=== PATIENT | male | born 1980 | race Caucasian/White ===

== ENCOUNTER 2016-08-04 10:33 | Emergency (ER) | payer OTHER, MEDICAID ==
[~2016-08-04] VITALS: Ht 162.6 cm; Wt 77.1 kg
[2016-08-04 10:33] VITALS: BP_SYST 123
[~2016-08-04 10:33] MED LIST: AZAT50TA18 PO; OMEP20CA4 PO; PRED-428 PO; SEN30 PO; SULF1TAB47 PO; TACR1CAP PO; VALG450T PO; [UNRECOGNIZED DRUG - CODE] PO
[2016-08-04] MEDS ORDERED: NACL 0.9% 1,000 ML IV ONE (10:54)
[2016-08-04] MEDS ORDERED: ONDANSETRON HCL 4 MG/2 ML VIAL IVP ONE (11:00)
[2016-08-04 11:14] LABS: BASOPHILS % (AUTO) 0.5 % (0.0-2.0); HEMATOCRIT 46.2 % (36-54); HEMOGLOBIN 15.2 g/dL (14.0-18.0); LYMPHOCYTES # (AUTO) 0.3 K/uL (1.0-5.5); LYMPHOCYTES % (AUTO) 3.2 % (20.5-51.5); MEAN CORPUSCULAR HEMOGLOBIN 30 pg (27-31); MEAN CORPUSCULAR HGB CONC 33 % (32-36); MEAN CORPUSCULAR VOLUME 91 fL (79.0-98.0); MONOCYTES # (AUTO) 0.2 K/uL (0.0-1.0); NEUTROPHILS # (AUTO) 7.9 K/uL (1.8-7.7); NEUTROPHILS % (AUTO) 94.3 % (40.0-70.0); PLATELET COUNT (AUTO) 256 K/uL (130-430); RED BLOOD CELL COUNT(AUTO) 5.05 MIL/uL (4.2-6.2); RED CELL DISTRIBUTION WIDTH 13.1 % (9.0-15.0); WHITE BLOOD COUNT (AUTO) 8.4 K/uL (4.8-10.8)
[2016-08-04 11:16] LABS: BILIRUBIN,URINE NEGATIVE (NEGATIVE); BLOOD, URINE 3+ (NEGATIVE); CLARITY/URINE CLEAR (CLEAR); COLOR,URINE YELLOW (YELLOW); GLUCOSE,URINE NEGATIVE (NEGATIVE); KETONES,URINE NEGATIVE (NEGATIVE); LEUKOCYTE ESTERASE ,URINE NEGATIVE (NEGATIVE); NITRITE, URINE NEGATIVE (NEGATIVE); PH,URINE 5.5 (5.0-8.0); PROTEIN URINE 1+ (NEGATIVE); UROBILINOGEN,URINE 0.2 (0.2-1.0)
[2016-08-04 11:18] LABS: CALCIUM 9.1 mg/dL (8.4-11.0); CREATININE 1.9 mg/dL (0.55-1.30); POTASSIUM 4.2 mmol/L (3.5-5.1)
[2016-08-04 11:25] LABS: ALBUMIN 4.3 g/dL (3.4-4.8); TOTAL BILIRUBIN 0.8 mg/dL (0.0-1.0)
[2016-08-04] MEDS ORDERED: MYCO180T3 PO (11:38)
[2016-08-04] MEDS ORDERED: SEN30 PO (11:38)
[2016-08-04] MEDS ORDERED: TACR1CAP PO (11:38)
[2016-08-04 11:42] LABS: BACTERIA,URINE FEW /HPF (None Seen); HYALINE CASTS, URINE 0-10 /LPF (None Seen); WBC,URINE 0-3 /HPF (0-3)
[2016-08-04 12:34] VITALS: BP_SYST 130
== END 2016-08-04 12:33 | disposition home or self-care (01) ==
LOC: SED 10:33
DX: R11.2 Nausea with vomiting, unspecified (principal); R19.7 Diarrhea, unspecified; Z88.1 Allergy status to other antibiotic agents; Z94.0 Kidney transplant status
CPT/HCPCS: 36415; 80053; 81000; 85025; 96361; 96374; 99284; J2405; J7030

== ENCOUNTER 2017-02-01 14:51 | Emergency (ER) | payer OTHER, MEDICAID ==
[~2017-02-01] VITALS: Ht 160 cm; Wt 76.2 kg
[~2017-02-01 14:51] MED LIST changes: -AZAT50TA18 PO; +MYCO180T3 PO; -SULF1TAB47 PO; -VALG450T PO; -[UNRECOGNIZED DRUG - CODE] PO
[2017-02-01 14:54] VITALS: BP_SYST 121
[2017-02-01 16:29] VITALS: BP_SYST 120
== END 2017-02-01 16:26 | disposition home or self-care (01) ==
LOC: SED 14:51
DX: S09.90XA Unspecified injury of head, initial encounter (principal); H57.12 Ocular pain, left eye; Z88.1 Allergy status to other antibiotic agents; W22.8XXA Striking against or struck by other objects, initial encounter; Y93.89 Activity, other specified; Y92.89 Other specified places as the place of occurrence of the external cause; Y99.8 Other external cause status
CPT/HCPCS: 70450-TC; 99284

== ENCOUNTER 2021-03-01 14:32 | Outpatient (CLI) | payer BC ==
[~2021-03-01 14:32] MED LIST changes: -TACR1CAP PO; +TACR1CAP2 PO
== END 2021-03-01 20:18 | disposition home or self-care (01) ==
LOC: SRD 14:32
PROVIDERS: ATTEND Internal Medicine Nephrology
DX: R06.02 Shortness of breath (principal)
CPT/HCPCS: 71046-TC

== ENCOUNTER 2021-05-31 12:24 | Outpatient (CLI) | payer OTHER, BC | END 2021-05-31 20:38 | disposition home or self-care (01) | LOC: SRD 12:24 | PROVIDERS: ATTEND Internal Medicine Nephrology | DX: Z01.818 Encounter for other preprocedural examination (principal); M25.559 Pain in unspecified hip | CPT/HCPCS: 71046-TC ==

== ENCOUNTER 2022-06-20 14:34 | Outpatient (CLI) | payer OTHER | END 2022-06-20 20:47 | disposition home or self-care (01) | LOC: SCT 14:34 | PROVIDERS: ATTEND Specialist | DX: N26.1 Atrophy of kidney (terminal) (principal); M43.17 Spondylolisthesis, lumbosacral region; N20.0 Calculus of kidney; Z96.641 Presence of right artificial hip joint; Z94.0 Kidney transplant status | CPT/HCPCS: 76376 ==

== ENCOUNTER 2022-07-25 08:18 | Outpatient (CLI) | payer OTHER | END 2022-07-25 21:05 | disposition home or self-care (01) | LOC: SUS 08:18 | PROVIDERS: ATTEND Internal Medicine Nephrology | DX: N28.1 Cyst of kidney, acquired (principal); N32.89 Other specified disorders of bladder; Z94.0 Kidney transplant status | CPT/HCPCS: 76770 ==

== ENCOUNTER 2023-03-28 08:43 | Outpatient (CLI) | payer BC, OTHER | END 2023-03-28 18:20 | disposition home or self-care (01) | LOC: SRD 08:43 | PROVIDERS: ATTEND Internal Medicine Nephrology | DX: K59.00 Constipation, unspecified (principal); I87.8 Other specified disorders of veins; N18.6 End stage renal disease; R10.9 Unspecified abdominal pain | CPT/HCPCS: 74018 ==